=== PATIENT | female | born 1960 | race Caucasian/White ===

== ENCOUNTER 2022-09-02 09:07 | Inpatient (IN) | payer OTHER ==
[~2022-09-02] VITALS: Ht 160 cm; Wt 83.9 kg
[2022-09-02] MEDS ORDERED: LISI20 PO (10:09)
[2022-09-02] MEDS ORDERED: HYDCHL25 PO (10:09)
[2022-09-02] MEDS ORDERED: METFORMIN HCL500 M2 PO (10:09)
[2022-09-02 12:17] LABS: BASOPHILS ABSOLUTE AUTO 0.05 K/mm3 (0.00-0.23); BASOPHILS PERCENT AUTO 1 % (0-2); EOSINOPHILS ABSOLUTE AUTO 0.08 K/mm3 (0.00-0.68); EOSINOPHILS PERCENT AUTO 1 % (0-6); Hematocrit 38.9 % (33.0-51.0); Hemoglobin 12.9 g/dL (11.5-16.0); IMMATURE GRAN ABSOLUTE AUTO 0.04 K/mm3 (0.00-0.10); IMMATURE GRAN PERCENT AUTO 0 % (0-1); LYMPHOCYTES ABSOLUTE AUTO 1.65 K/mm3 (0.84-5.20); LYMPHOCYTES PERCENT AUTO 15 % (21-46); MONOCYTES ABSOLUTE AUTO 0.81 K/mm3 (0.16-1.47); MONOCYTES PERCENT AUTO 8 % (4-13); Mean Corpuscular HGB Conc 33.2 g/dL (31.5-36.5); Mean Corpuscular Volume 85 fL (80-100); Mean Platelet Volume 10.2 fL (9.1-12.4); NEUTROPHILS ABSOLUTE AUTO 8.11 K/mm3 (1.96-9.15); NEUTROPHILS PERCENT AUTO 76 % (41-73); Platelet Count 311 K/mm3 (150-400); RDW Coefficient Variation 14.3 % (11.7-14.2); White Blood Cell Count 10.74 K/mm3 (4.00-11.30)
[2022-09-02 12:37] LABS: Albumin, Blood 3.6 g/dL (3.4-5.0); Albumin/Globulin Ratio 0.9 (0.8-1.8); Bilirubin, Total 0.4 mg/dL (0.1-1.0); Bun/Creatinine Ratio 27.6 (12.0-20.0); Creatinine, Blood 0.83 mg/dL (0.40-1.00); Potassium, Blood 4.1 mmol/L (3.5-5.5); Total Protein, Blood 7.6 g/dL (6.4-8.2)
[2022-09-02 19:30] LABS: Appearance, CSF Clear (Clear); Color, CSF No Color (No Color); RBC Count, CSF 0 /mm3 (0-0); WBC Count, CSF 0 /mm3 (0-5)
[2022-09-02 19:41] LABS: Glucose, CSF 63 mg/dL (40-70)
[2022-09-02 20:18] LABS: Cryptococcus Neoformans/Gattii Not Detected (NOT DETECT); Enterovirus Not Detected (NOT DETECT); Escherichia Coli K1 Not Detected (NOT DETECT); Haemophilus Influenza Not Detected (NOT DETECT); Herpes Simplex Virus 1 Not Detected (NOT DETECT); Herpes Simplex Virus 2 Not Detected (NOT DETECT); Human Herpesvirus 6 Not Detected (NOT DETECT); Human Parechovirus Not Detected (NOT DETECT); Listeria Monocytogenes Not Detected (NOT DETECT); Neisseria Meningitidis Not Detected (NOT DETECT); Streptococcus Agalactiae Not Detected (NOT DETECT); Streptococcus Pneumoniae Not Detected (NOT DETECT); Varicella Zoster Virus Not Detected (NOT DETECT)
--- NOTE | 2022-09-03 03:30 | NUR ---
Patient resting in room, no complaints of nausea or vomitting.
[2022-09-03 07:21] LABS: BASOPHILS ABSOLUTE AUTO 0.05 K/mm3 (0.00-0.23); BASOPHILS PERCENT AUTO 1 % (0-2); EOSINOPHILS ABSOLUTE AUTO 0.14 K/mm3 (0.00-0.68); EOSINOPHILS PERCENT AUTO 2 % (0-6); Hematocrit 38.3 % (33.0-51.0); Hemoglobin 12.5 g/dL (11.5-16.0); IMMATURE GRAN ABSOLUTE AUTO 0.03 K/mm3 (0.00-0.10); IMMATURE GRAN PERCENT AUTO 0 % (0-1); LYMPHOCYTES PERCENT AUTO 30 % (21-46); MONOCYTES ABSOLUTE AUTO 0.94 K/mm3 (0.16-1.47); MONOCYTES PERCENT AUTO 11 % (4-13); Mean Corpuscular HGB 27.5 pg (26.0-34.0); Mean Corpuscular HGB Conc 32.6 g/dL (31.5-36.5); Mean Corpuscular Volume 84 fL (80-100); NEUTROPHILS ABSOLUTE AUTO 4.99 K/mm3 (1.96-9.15); NEUTROPHILS PERCENT AUTO 57 % (41-73); Platelet Count 305 K/mm3 (150-400); RDW Coefficient Variation 14.4 % (11.7-14.2); RDW Standard Deviation 43.6 fL (35.1-46.3); Red Blood Cell Count 4.55 M/mm3 (3.80-5.20); White Blood Cell Count 8.75 K/mm3 (4.00-11.30)
[2022-09-03 08:26] LABS: Albumin, Blood 3.2 g/dL (3.4-5.0); Albumin/Globulin Ratio 0.9 (0.8-1.8); Bilirubin, Total 0.4 mg/dL (0.1-1.0); Bun/Creatinine Ratio 30.4 (12.0-20.0); Calcium, Blood 8.2 mg/dL (8.5-10.1); Creatinine, Blood 0.69 mg/dL (0.40-1.00); Globulin, Blood 3.7 g/dL (2.2-4.0); Potassium, Blood 3.8 mmol/L (3.5-5.5); Total Protein, Blood 6.9 g/dL (6.4-8.2)
--- NOTE | 2022-09-03 18:00 | NUR ---
SHIFT SUMMARY: PT A&O X4, PLEASANT AND COOPERATIVE. PT HAD NO COMPLAINTS OF NAUSEA THROUGHOUT THE SHIFT. PT ABLE TO AMBULATE TO THE BATHROOM AND SHOWER WITHOUT ASSISTANCE JUST SETUP. PT HAD GOOD APPIETATE THROUGHTOUT THE SHIFT. PT HAD NO COMPLAINTS OF PAIN. PT AT BEDSIDE THROUGHOUT THE SHIFT. PT HAS A CONSULT WITH DR. LATHAM. PT IN BED WITH CALL LIGHT WITHIN REACH.
--- NOTE | 2022-09-04 04:22 | NUR ---
SHIFT SUMMARY PATIENT HAD NO ACUTE CHANGES OBSERVED. DENIES VERTIGO THIS SHIFT. AXOX 4 AND SBA TO BR. VSS/AFEBRILE. DENIES PAIN, SOB, AND N/V. DR LATHAM IN ROOM AT SHIFT CHANGE FOR CONSULT. PIV REMAINS INTACT. SLEPT MOST OF THE SHIFT. CALL LIGHT IN REACH. BED IN LOWEST POSITION. WILL CONTINUE TO MONITOR UNTIL DAY SHIFT NURSE ASSUMES CARE.
[2022-09-04 06:17] LABS: Bun/Creatinine Ratio 30.1 (12.0-20.0); Calcium, Blood 8.9 mg/dL (8.5-10.1); Creatinine, Blood 0.76 mg/dL (0.40-1.00); Potassium, Blood 3.8 mmol/L (3.5-5.5)
[2022-09-04 08:11] LABS: COMPLEMENT C3, SERUM 166 mg/dL (82-167)
[2022-09-04] MEDS ORDERED: Acetaminophen325 M1 PO (11:52)
[2022-09-04] MEDS ORDERED: MECL25 PO (11:52)
[2022-09-04] MEDS ORDERED: ONDA4ODT MM (11:53)
--- NOTE | 2022-09-04 13:31 | NUR ---
DISCHARGE SUMMARY PT DISCHARGED TO HOME. PT LEFT ROOM AT 1205 VIA WHEELCHAIR WITH THIS RN ESCORT. PT EDUCATED ON ALL DISCHARAGE INSTRUCTIONS, ALL QUESTIONS ANSWERED. IV DC'D AND BELONGINGS RETURNED. PT AGREES TO FOLLOW UP WITH PCP ON 09/06/22 AT 1500 PER APPOINTMENT AND TO DATA SPECIALIST MEDICATIONS FROM PHARMACY.
[2022-09-04 18:06] LABS: ANTI-DSDNA ANTIBODIES 1 IU/mL (0-9); RNP ANTIBODIES 0.4 AI (0.0-0.9); SJOGREN'S ANTI-SS-A <0.2 AI (0.0-0.9); SJOGREN'S ANTI-SS-B <0.2 AI (0.0-0.9); SMITH ANTIBODIES <0.2 AI (0.0-0.9)
[2022-09-07 09:10] LABS: ANTI-HU ANTIBODIES* <1:10 titer (.); ANTI-RI ANTIBODIES* <1:10 titer (.); ANTI-YO ANTIBODIES* <1:10 titer (.)
== END 2022-09-04 12:28 | disposition home or self-care (01) | DRG 149 ==
LOC: ER 09:07 → ERHOLD 09:08 → MEDS 09:08
PROVIDERS: Emergency Medicine; Family Medicine; Psychiatry & Neurology Neurology; ADMIT Hospitalist
PROC: 009U3ZX Drainage of Spinal Canal, Percutaneous Approach, Diagnostic (ICD-10-PCS; principal; 2022-09-02)
DX: R42 Dizziness and giddiness (principal); R93.0 Abnormal findings on diagnostic imaging of skull and head, not elsewhere classified; E11.9 Type 2 diabetes mellitus without complications; I10 Essential (primary) hypertension; R20.0 Anesthesia of skin; R20.2 Paresthesia of skin; G93.89 Other specified disorders of brain; H61.23 Impacted cerumen, bilateral; F10.10 Alcohol abuse, uncomplicated; Z88.5 Allergy status to narcotic agent; Z98.890 Other specified postprocedural states; Z98.42 Cataract extraction status, left eye; Z90.710 Acquired absence of both cervix and uterus; Z90.722 Acquired absence of ovaries, bilateral; Z79.84 Long term (current) use of oral hypoglycemic drugs; Z79.811 Long term (current) use of aromatase inhibitors; Z79.899 Other long term (current) drug therapy; Z87.891 Personal history of nicotine dependence
CPT/HCPCS: 36415; 62270; 70553; 80048; 80053; 82945; 84157; 85025; 85651; 86140; 86160; 86225; 86235; 86403; 87070; 87205; 87483; 88108; 89051; 93005; 93010; 97112; 97161; 97165; 99285-25; A9270; A9579; G0378; J2550; J3360; J7030; Q0167